=== PATIENT | male | born 1995 | race Caucasian/White ===

== ENCOUNTER 2018-04-19 01:56 | Emergency (ER) | payer OTHER ==
[2018-04-19] MEDS: OXYCODONE/ACETAMINOPHEN (5/325) TAB PO (02:58)
== END 2018-04-19 04:46 | disposition home or self-care (01) ==
LOC: FTE 01:56
DX: L02.31 Cutaneous abscess of buttock (principal)
CPT/HCPCS: 10060; 99283-25